=== PATIENT | female | born 1950 | race Caucasian/White ===

== ENCOUNTER 2020-09-20 19:43 | Inpatient (IN) | payer MEDICARE ==
[2020-09-20 20:43] LABS: Hemoglobin 10.4 g/dL (12.0-16.0); Mean Corpuscular HGB CONC 28.7 g/dL (32.0-36.0); Mean Corpuscular Hemoglobin 26.2 pg (27.0-31.0); Mean Corpuscular Volume 91.3 fL (78.0-98.0); Mean Platelet Volume 9.9 fL (7.4-10.4); Platelet Count 276 thou/uL (130-400); RBC Distribution Width 17.5 % (11.5-14.5); Red Blood Cell (RBC) Count 3.98 mill/uL (4.20-5.40); White Blood Cell (WBC) Count 8.7 thou/uL (4.8-10.8)
[2020-09-20 20:44] LABS: #Eosinphils 0.1 thou/uL (0.0-0.7); #Monocytes 0.9 thou/uL (0.11-0.59); #Neutrophils 6.7 thou/uL (1.40-6.50); %Basophils 0.4 % (0.0-1.0); %Lymphocytes 11.9 % (21.0-51.0); %Monocytes 9.8 % (0.0-10.0)
[2020-09-20 21:07] LABS: ALT (SGPT) 11 U/L (8-55); AST (SGOT) 12 U/L (5-34); Albumin 3.6 g/dL (3.4-4.8); Alkaline Phosphatase 86 U/L (40-110); Anion Gap 17 mmol/L (10-20); BUN (Urea Nitrogen) 48 mg/dL (9.8-20.1); Bilirubin, Total 0.3 mg/dL (0.2-1.2); CK (CPK) 74 U/L (29-168); Calc. Creatinine Clearance 0 mL/min (70-130); Calcium 8.5 mg/dL (7.8-10.44); Carbon Dioxide 25 mmol/L (23-31); Chloride 108 mmol/L (98-107); Globulin 2.9 g/dL (2.4-3.5); Glucose 130 mg/dL (83-110); Lipase 10 U/L (8-78); Potassium 5.7 mmol/L (3.5-5.1); Protein, Total 6.5 g/dL (5.8-8.1); Sodium 144 mmol/L (136-145)
[2020-09-20 21:10] LABS: Anisocytosis SLIGHT = 6-15 cells (100X) (0-5/hpf); Hypochromia MODERATE=16-30 cells (100X) (0-5/hpf); MDiff Complete? YES; Ovalocytes SLIGHT = 2-5 cells (100X) (0-1/hpf); Platelet Morphology Comment Appears Adequate; Polychromasia SLIGHT = 2-3 cells (100X) (0-2/hpf); Reflex for Review?? NO; Stomatocytes SLIGHT = 2-5 cells (100X) (0-1/hpf); Target Cells SLIGHT = 2-5 cells (100X) (0-1/hpf)
[2020-09-20] MEDS ORDERED: Diltiazem 125 MG/25 ML ONE (21:29)
[2020-09-20] MEDS ORDERED: Magnesium 2 GM/50 ML BAG (IN WATER) ONE (21:29)
[2020-09-20 21:49] LABS: Actual Bicarbonate (HCO3a) 25.3 mEq/L (22-28); Analyzer IN Cardio ER; Base Excess (BEa) -2.8 mEq/L (-2.0 to +3.0); Calcium, Ionized (arterial) 1.22 mmol/L (1.12-1.30); Carboxyhemoglobin (COHb) 0.4 gm% (0.0-3.0); Potassium - ABG Lab 5.59 mmol/L (3.70-5.30)
[2020-09-20 22:04] LABS: SARS-CoV-2 NAA Rapid Test Not Detected (NotDetected)
[2020-09-20 22:37] LABS: pH, Arterial 7.24 (7.35-7.45)
[2020-09-20 22:38] LABS: CO2 Tension 61.2 mmHg (35.0-45.0); Puncture Site RRA
[2020-09-20] MEDS ORDERED: Rocuronium Bromide 10 MG/ML (10ML VIAL) ONE (23:16)
[2020-09-20] MEDS ORDERED: Fentanyl 100 MCG/2 ML VIAL ONE ×2 (23:45→23:59)
[2020-09-20] MEDS ORDERED: fentaNYL Citrate/PF 2,000 MCG in Sodium Chloride 0.9% 60 ML IV SCH (23:45)
--- NOTE | 2020-09-20 23:53 | RAD ---
Chest one view HISTORY: Dyspnea. Intubated. COMPARISON: Earlier exam on the same date. FINDINGS: Cardiac silhouette is magnified, enlarged, and partially secured by dense bilateral airspac e disease scattered throughout each lung. Density has progressed since the prior study. Left hemidiaphragm now obscured. Pulmonary vasculature remains engorged. Tip of an endotracheal catheter projects over the thoracic inlet. Tip of a right subclavian central v enous catheter overlies the SVC. No evidence of pneumothorax. Calcification at the aorta. IMPRESSION : Endotracheal catheter and right subclavian central venous catheter are in good radiographic position. Worsening pulmonary edema and bilateral infiltrates and fluid.
[2020-09-21 00:24] LABS: Actual Bicarbonate (HCO3a) 25.5 mEq/L (22-28); Analyzer IN Cardio ER; Base Excess (BEa) -1.1 mEq/L (-2.0 to +3.0); CO2 Tension 51.4 mmHg (35.0-45.0); Carboxyhemoglobin (COHb) 0.6 gm% (0.0-3.0); Hemoglobin (Hb) 10.7 g/dL (12.0-16.0); O2 Tension (PaO2), arterial 61.5 mmHg (> 70.0); Potassium - ABG Lab 5.38 mmol/L (3.70-5.30); pH, Arterial 7.31 (7.35-7.45)
[2020-09-21 00:26] LABS: Puncture Site LRA
[2020-09-21] MEDS ORDERED: Acetaminophen 325 MG TAB PO PRN (02:14)
[2020-09-21] MEDS ORDERED: Ventilator Sedation Protocol 1 EACH FS SCH (03:00)
[2020-09-21 03:06] LABS: Anion Gap 23 mmol/L (10-20); BUN (Urea Nitrogen) 50 mg/dL (9.8-20.1); Calc. Creatinine Clearance 0 mL/min (70-130); Calcium 9.6 mg/dL (7.8-10.44); Carbon Dioxide 21 mmol/L (23-31); Chloride 105 mmol/L (98-107); Glucose 103 mg/dL (83-110); Potassium 6.3 mmol/L (3.5-5.1); Sodium 143 mmol/L (136-145)
[2020-09-21] MEDS ORDERED: Propofol BOLUS 1,000 MG/100 ML VIAL IV PRN (03:30)
[2020-09-21] MEDS ORDERED: DISCONTINUE PREVIOUS NARCOTIC PAIN MEDICATIONS AND BENZODIAZEPINES FS SCH (03:30)
[2020-09-21] MEDS ORDERED: Fentanyl BOLUS 250 ML IVPB PRN (03:30)
[2020-09-21] MEDS ORDERED: Propofol 1,000 MG/100 ML VIAL IV PRN (03:30)
[2020-09-21] MEDS ORDERED: Morphine 2 MG/ML VIAL SLOW IVP PRN (03:30)
[2020-09-21] MEDS: Azithromycin 500 MG in Sodium Chloride 0.9% 250 ML 250 ML IVPB SCH (03:59)
--- NOTE | 2020-09-21 04:01 | PDOC.HHP ---
Hospitalist HPI Dyspnea History of Present Illness: This is a 70-year-old female patient with a history of CHF, COPD, morbid obesity atrial fibrillation, diabetes mellitus, hyperlipidemia who presents with worsening dyspnea. She is a senior living resident. At baseline patient requires 2L supplemental oxygen and is ANO x4. Patient was found to be confused ANO x2 with hypoxia EMS was activated. She was sent to [place] where initial management involved Lasix 40 mg cefepime and vancomycin and she required nonrebreather oxygen by facemask at 10 L. She was subsequently transferred here for higher level care. At presentation here her blood pressure was 164/122, pulse 113, respirate 16 and saturation 98% on nonrebreather. Temperature is 97.7. Patient was increasingly agitatedwas eventually intubated for airway protection. Labs showed WBC 8.7, hemoglobin 10.4, platelets 276, chemistry showed sodium 144, potassium 5.7, creatinine 2.27 with no baseline on file. Glucose is 130. Troponin was 0.021 and BNP elevated at 277. ABG showed a pH of 7.24, PE CO2 of 61.2 and PO2 of 42. Chest x-ray noted worsening pulmonary edema with bilateral infiltrates and fluid. Her Covid test was negative as well as influenza. H ospitalist team was consulted to admit patient. Allergies/Adverse Reactions: Allergy/AdvReac Type Severity Reaction Status Date / Time codeine Allergy Verified 09/20/20 23:46 morphine Allergy Verified 09/20/20 23:46 Past History: PMHx: PSHx: FHx: Social: Hospitalist HPI ROS ROS unobtainable: due to endotracheal tube Hospitalist Exam Vitals: Weight Weight 383 lb 6.142 oz General - other findings: Intubated, spontaneous movement of all limbs. Eye - other findings: Pupils reactive bilaterally ENT: normocephalic atraumatic Neck: supple, symmetric Heart: RRR, no murmur, no rubs Respiratory: tachypneic, wheezes Respiratory - other findings: Coarse breath sounds bilaterally. Gastrointestinal: soft Gastrointestinal - other findings: Obese, no rigidity organomegaly. Bowel sounds present Extremities: no cyanosis, no clubbing, 1+ LE edema Neurological - other findings: Spontaneous movement of all limbs. Psychiatric - other findings: Unable to assess Hospitalist Results Result Diagrams: 09/20/20 20:30 09/21/20 03:48 Lab results: Laboratory Last Values WBC 8.7 thou/uL (4.8-10.8) 09/20/20 20:30 RBC 3.98 mill/uL (4.20-5.40) L 09/20/20 20:30 Hgb 10.4 g/dL (12.0-16.0) L 09/20/20 20:30 Hct 36.4 % (36.0-47.0) 09/20/20 20:30 MCV 91.3 fL (78.0-98.0) 09/20/20 20: MCH 26.2 pg (27.0-31.0) L 09/20/20 20: MCHC 28.7 g/dL (32.0-36.0) L 09/20/20 20: RDW 17.5 % (11.5-14.5) H 09/20/20 20:30 Plt Count 276 thou/uL (130-400) 09/20/20 20: MPV 9.9 fL (7.4-10.4) 09/20/20 20: Neutrophils % 77.0 % (42.0-75.0) H 09/20/20 20:30 Neutrophils % (Manual) Not Reportable 09/20/20 20: Lymphocytes % 11.9 % (21.0-51.0) L 09/20/20 20:30 Monocytes % 9.8 % (0.0-10.0) 09/20/20 20: Eosinophils % 1.0 % (0.0-10.0) 09/20/20: Basophils % 0.4 % (0.0-1.0) 09/20/20 20:30 Neutrophils # 6.7 thou/uL (1.40-6.50) H 09/20/20 20:30 Lymphocytes # 1.0 thou/uL (1.20-3.40) L 09/20/20 20: Monocytes # 0.9 thou/uL (0.11-0.59) H 09/20/20 20:30 Eosinophils # 0.1 thou/uL (0.0-0.7) 09/20/20 20: Basophils # 0.0 thou/uL (0.0-0.2) 09/20/20 20:30 Hypochromia MODERATE=16-30 cells (100X) (0-5/hpf) H 09/20/20 20:30 Plt Morphology Comment Appears Adequate 09/20/20 20:30 Polychromasia SLIGHT = 2-3 cells (100X) (0-2/hpf) 09/20/20 20:30 Anisocytosis SLIGHT = 6-15 cells (100X) (0-5/hpf) 09/20/20 20:30 Target Cells SLIGHT = 2-5 cells (100X) (0-1/hpf) 09/20/20 20:30 Ovalocytes SLIGHT = 2-5 cells (100X) (0-1/hpf) 09/20/20 20:30 Stomatocytes SLIGHT = 2-5 cells (100X) (0-1/hpf) 09/20/20 20:30 Specimen Type a 09/21/20 00:15 Puncture Site LRA 09/21/20 00:15 Bicarbonate Actual 25.5 mEq/L (22-28) 09/21/20 00:15 ABG pH 7.31 (7.35-7.45) L 09/21/20 00:15 ABG pCO2 51.4 mmHg (35.0-45.0) H 09/21/20 00:15 ABG pO2 61.5 mmHg (> 70.0) 09/21/20 00:15 ABG O2 Sat (Measured) 92.5 % (94.0-98.0) L 09/21/20 00:15 ABG O2 Content 13.7 vol% (18.0-21.0) L 09/21/20 00:15 ABG Base Excess -1.1 mEq/L (-2.0 to +3.0) 09/21/20 00:15 ABG Hematocrit 31.0 % (36.0-47.0) L 09/21/20 00:15 ABG Hemoglobin 10.7 g/dL (12.0-16.0) L 09/21/20 00:15 ABG Oxyhemoglobin 91.1 % (94.0-98.0) L 09/21/20 00:15 ABG Carboxyhemoglobin 0.6 gm% (0.0-3.0) 09/21/20 00:15 ABG Methemoglobin 0.90 gm% (0.04-1.52) 09/21/20 00:15 ABG Deoxyhemoglobin 7.4 % (0.0-2.9) H 09/21/20 00:15 Sree Test POSITIVE 09/21/20 00:15 A-a O2 Gradient 230.750 mmHg (0-20) H 09/21/20 00:15 Sodium 143 mmol/L (135-148) 09/21/20 00:15 Potassium 5.38 mmol/L (3.70-5.30) H 09/21/20 00:15 Chloride 109 mmol/L (98-106) H 09/21/20 00:15 Ionized Calcium 1.20 mmol/L (1.12-1.30) 09/21/20 00:15 Mode of Support SIMV 09/21/20 00:15 Mechanical Rate 18 min 09/21/20 00:15 Inspired O2 50 % 09/21/20 00:15 Tidal Volume 450 ml 09/21/20 00:15 Pressure Support 10 cmH2O 09/21/20 00:15 PEEP or CPAP 5.0 cmH2O 09/21/20 00:15 Sodium 143 mmol/L (136-145) 09/21/20 02:33 Potassium 6.3 mmol/L (3.5-5.1) H 09/21/20 02:33 Chloride 105 mmol/L (98-107) 09/21/20 02:33 Carbon Dioxide 21 mmol/L (23-31) L 09/21/20 02:33 Anion Gap 23 mmol/L (10-20) H 09/21/20 02:33 BUN 50 mg/dL (9.8-20.1) H 09/21/20 02:33 Creatinine 2.83 mg/dL (0.6-1.1) H 09/21/20 02:33 Estimated GFR (MDRD) 16 09/21/20 02:33 Glucose 103 mg/dL (83-110) 09/21/20 02:33 Lactic Acid 1.7 mmol/L (0.5-2.2) 09/20/20 20:30 Calcium 9.6 mg/dL (7.8-10.44) 09/21/20 02:33 Total Bilirubin 0.3 mg/dL (0.2-1.2) 09/20/20 20:30 AST 12 U/L (5-34) 09/20/20 20:30 ALT 11 U/L (8-55) 09/20/20 20:30 Alkaline Phosphatase 86 U/L (40-110) 09/20/20 20:30 Creatine Kinase 74 U/L (29-168) 09/20/20 20:30 Troponin I 0.021 ng/mL (< 0.028) 09/20/20 20:30 B-Natriuretic Peptide 277.8 pg/mL (0-100) H 09/20/20 20:31 Serum Total Protein 6.5 g/dL (5.8-8.1) 09/20/20 20:30 Albumin 3.6 g/dL (3.4-4.8) 09/20/20 20: Globulin 2.9 g/dL (2.4-3.5) 09/20/20 20: Albumin/Globulin Ratio 1.2 g/dL (1.2-2.2) 09/20/20 20:30 Lipase 10 U/L (8-78) 09/20/20 20:30 Influenza A RNA INAAT Not Detected (NotDetected) 09/20/20 20:57 Influenza B RNA INAAT Not Detected (NotDetected) 09/20/20 20:57 SARS-CoV-2 Rap RNA(RT-PCR) Not Detected (NotDetected) 09/20/20 20:57 Hospitalist H&P A/P Plan: This is 70-year-old female patient with history of COPD, CHF presenting with worsening dyspnea and altered mental status ultimately requiring intubation. Acute hypoxic respiratory failure MultifactorialCHF exacerbation, COPD exacerbation, possible pneumonia. Currently intubated Appreciate pulmonology input. Acute encephalopathy Likely secondary to hypoxia and hypercarbia Continue management on the ventilator Continue monitor COPD exacerbation Duo nebs, steroids, antibioticsazithromycin with cefepime Continue ventilator support. CHF exacerbation Received Lasix at outside hospital We will continue hydration Echocardiogram in a.m. Consider cardiology consult. Possible pneumonia Continue antibiotics as above-azithromycin/cefepime DEDE Creatinine above 2 no baseline on file Possible cardiorenal We will diurese Nephrology consult. Hyperkalemia Potassium above 5 Appreciate nephrology input. DVT prophylaxisHeparin CODE STATUSto be discussed
[2020-09-21] MEDS ORDERED: Insulin Regular 300 UNITS/3 ML VIAL IVP SCH (04:15)
[2020-09-21] MEDS ORDERED: Calcium Gluc 4.6 MEQ/10 ML (100 MG/ML) SLOW IVP SCH (04:15)
[2020-09-21] MEDS: Dextrose 50% Abboject 50 ML SYRINGE SLOW IVP SCH ×2 (04:28→06:46)
[2020-09-21 04:30] LABS: Bacteria/HPF None Seen HPF (None Seen); Bilirubin Negative (Negative); Blood, Urine Negative (Negative); Clarity Clear (Clear); Glucose, Urine (Dipstick) Normal (Negative); Ketone, Urine Negative (Negative); Leukocyte Negative Leu/uL (Negative); Nitrite Negative (Negative); Protein, Urine (Dipstick) 30 mg/dL (Neg-Trace); RBC/HPF 0-3 HPF (0-3); Specific Gravity, Urine 1.015 (1.002-1.036); Squamous Epithelial 0-3 HPF (0-3); Urobilinogen Normal mg/dL (Less than 2); WBC/HPF 0-3 HPF (0-3)
[2020-09-21 04:35] LABS: Anion Gap 20 mmol/L (10-20); BUN (Urea Nitrogen) 52 mg/dL (9.8-20.1); Calc. Creatinine Clearance 51 mL/min (70-130); Calcium 8.8 mg/dL (7.8-10.44); Carbon Dioxide 23 mmol/L (23-31); Chloride 108 mmol/L (98-107); Glucose 94 mg/dL (83-110); Potassium 6.1 mmol/L (3.5-5.1); Sodium 145 mmol/L (136-145)
[2020-09-21] MEDS ORDERED: Dextrose 50% Abboject 50 ML SYRINGE SLOW IVP SCH (04:45)
[2020-09-21] MEDS ORDERED: cefTRIAXone\\ROCEPHIN 1 GM in Sodium Chloride 0.9% 100 ML IVPB SCH (06:00)
[2020-09-21] MEDS: Furosemide 40 MG/4 ML VIAL SLOW IVP SCH ×2 (06:16→14:47)
[2020-09-21 06:28] LABS: #Eosinphils 0.1 thou/uL (0.0-0.7); #Lymphocytes 1.2 thou/uL (1.20-3.40); #Monocytes 0.9 thou/uL (0.11-0.59); #Neutrophils 5.8 thou/uL (1.40-6.50); %Basophils 0.2 % (0.0-1.0); %Eosinophils 1.7 % (0.0-10.0); %Lymphocytes 14.6 % (21.0-51.0); %Monocytes 11.4 % (0.0-10.0); %Neutrophils 72.1 % (42.0-75.0); Anisocytosis SLIGHT = 6-15 cells (100X) (0-5/hpf); Hemoglobin 10.1 g/dL (12.0-16.0); MDiff Complete? YES; Mean Corpuscular HGB CONC 28.8 g/dL (32.0-36.0); Mean Corpuscular Hemoglobin 26.4 pg (27.0-31.0); Mean Corpuscular Volume 91.7 fL (78.0-98.0); Mean Platelet Volume 10.6 fL (7.4-10.4); Platelet Count 234 thou/uL (130-400); RBC Distribution Width 17.1 % (11.5-14.5); Red Blood Cell (RBC) Count 3.84 mill/uL (4.20-5.40); White Blood Cell (WBC) Count 8.1 thou/uL (4.8-10.8)
[2020-09-21] MEDS ORDERED: Fentanyl CADD 100 ML ONE ×2 (07:47→21:31)
[2020-09-21 08:41] LABS: Actual Bicarbonate (HCO3a) 24.7 mEq/L (22-28); Base Excess (BEa) 0.5 mEq/L (-2.0 to +3.0); Calcium, Ionized (arterial) 1.18 mmol/L (1.12-1.30); Carboxyhemoglobin (COHb) 0.7 gm% (0.0-3.0); Hemoglobin (Hb) 10.2 g/dL (12.0-16.0); O2 Tension (PaO2), arterial 70.2 mmHg (> 70.0); Potassium - ABG Lab 4.96 mmol/L (3.70-5.30); pH, Arterial 7.43 (7.35-7.45)
[2020-09-21 08:45] LABS: Puncture Site LRA
[2020-09-21] MEDS ORDERED: Heparin 5,000 UNITS/ML VIAL SC SCH (09:00)
[2020-09-21] MEDS: Cefepime 2 GM in Sodium Chloride 0.9% 100 ML IVPB SCH ×2 (09:10→21:00)
[2020-09-21] MEDS: methylPREDNISolone Sod Succ 40 MG VIAL IVP SCH (09:12)
[2020-09-21 10:28] LABS: Potassium 3.9 mmol/L (3.5-5.1)
[2020-09-21] MEDS ORDERED: Dextrose 50% Abboject 50 ML SYRINGE IVP PRN (12:00)
[2020-09-21] MEDS ORDERED: Dextrose 5% in Water 1,000 ML IV PRN (12:00)
--- NOTE | 2020-09-21 13:30 | CON ---
DATE OF CONSULTATION: HISTORY OF PRESENT ILLNESS: Latrice Rodriguez is a 70-year-old female. History is obtained from the xt-hfwmoorx-dr-law, who does provide majority of her supportive care. She appears to be very concerned. Apparently, Ms. Rodriguez had really been out of full-time care environment for quite some time. She can transfer to a wheelchair, but she does not ambulate. She has been hospitalized once in [place] with heart failure recently and then hospitalized all the way down in [place] recently when she was flown from [place] to [place] for congestive heart failure because the hospital was apparently a sister hospital according to the sk-qdtzzcjr-mg-law. She has a history also of uldhnjjpy-fg-fjvipwh atrial fibrillation. She apparently presented with respiratory failure and was intubated. She was noted to be hypertensive on admission, although lungs are quite large. It is unclear to me whether or not these are accurate blood pressures. PAST MEDICAL HISTORY: Otherwise remarkable for obesity, deconditioning, chronic oxygen use, diabetes, and lipid disorder. FAMILY HISTORY: Negative for lung disease in early age. SOCIAL HISTORY: As mentioned, her kl-dcqdbnmo-bp-law provides most of her care. She does have out of town children, I believe. She is nonsmoker, nondrinker. REVIEW OF SYSTEMS: Not obtainable. PHYSICAL EXAMINATION: VITAL SIGNS: Blood pressure 121/73, heart rate is 105. She is in atrial fibrillation. FiO2 is at 55, respiratory rates in the teens. She is 5.2, 383 according to the computer. HEENT: Her pupils react. Sclerae are anicteric. GENERAL: She will awaken and make eye contact. She spontaneously moves her extremities. LUNGS: Clear. HEART: Regular rhythm. ABDOMEN: Soft. EXTREMITIES: Fairly massive extremities with stasis changes. LABORATORY DATA: White count 8.1, hemoglobin 10.1, and platelets 234. Potassium was 6.1 this morning. Repeat was 3.9. IMPRESSION: Respiratory failure secondary to congestive heart failure associated with hypertension and atrial fibrillation. Cardiology should be consulted. Echocardiogram needs to be done. She is not weanable at this time. I have encouraged the uz-edzowika-zn-law to discuss code status with family. We will follow. Job ID: [id number]
--- NOTE | 2020-09-21 14:10 | PDOC.HOSPP ---
- Subjective Encounter Date: 09/21/20 Encounter Time: 14:08 Subjective: Ms. Rodriguez was seen today in follow-up of respiratory failure due to COVID pneumonia. She is intubated, and sedated. - Objective Vital Signs & Weight: Vital Signs (12 hours) Temp Pulse Resp BP Pulse Ox 09/21/20 11:47 117 H 103/79 09/21/20 11:00 99.4 F 09/21/20 08:25 114 H 141/84 H 98 09/21/20 08:00 100.2 F H 09/21/20 06:00 18 09/21/20 04:00 18 98 09/21/20 03:10 98.7 F 09/21/20 02:50 68 Weight Weight 383 lb Most Recent Monitor Data Heart Rate from ECG 113 NIBP 104/74 NIBP BP-Mean 84 Respiration from ECG 18 SpO2 95 I&O: 09/20/20 09/21/20 09/22/20 06:59 06:59 06:59 Intake Total 625.8 113 Output Total 100 245 Balance 525.8 -132 Result Diagrams: 09/21/20 03:48 09/21/20 09:53 Hospitalist ROS - Medication Medications: Active Medications Generic Name Dose Route Start Last Admin Trade Name Freq PRN Reason Stop Dose Admin Dextrose/Water 25 gm 09/21/20 12:00 09/21/20 11:58 Dextrose 50% Abboject 50 Ml Syringe IVP 25 gm PRN PRN Administration HYPOGLYCEMIA PROTOCOL Furosemide 40 mg 09/21/20 06:00 09/21/20 06:16 Furosemide 40 Mg/4 Ml Vial SLOW IVP 40 mg 0600,1400 TAHMINA Administration Azithromycin 500 mg/ Sodium 250 mls @ 250 mls/hr 09/21/20 04:00 09/21/20 03:59 Chloride IVPB 250 mls 0400 TAHMINA Administration Cefepime HCl 2 gm/ Sodium 100 mls @ 200 mls/hr 09/21/20 09:00 09/21/20 09:10 Chloride IVPB 100 mls Q12HR TAHMINA Administration Methylprednisolone Sodium Succinate 40 mg 09/21/20 09:00 09/21/20 09:12 Methylprednisolone Sod Succ 40 Mg Vial IVP 40 mg DAILY TAHMINA Administration Hospitalist Exam Vitals: Vital Signs (12 hours) Temp Pulse Resp BP Pulse Ox 09/21/20 11:47 117 H 103/79 09/21/20 11:00 99.4 F 09/21/20 08:25 114 H 141/84 H 98 09/21/20 08:00 100.2 F H 09/21/20 06:00 18 09/21/20 04:00 18 98 09/21/20 03:10 98.7 F 09/21/20 02:50 68 Weight Weight 383 lb Most Recent Monitor Data Heart Rate from ECG 113 NIBP 104/74 NIBP BP-Mean 84 Respiration from ECG 18 SpO2 95 General Appearance: NAD, awake alert Eye: PERRL, anicteric sclera Heart: RRR, no murmur, no gallops, no rubs, normal peripheral pulses Respiratory: rales (at both bases, and decreased breath sounds.) Gastrointestinal: soft, non-tender, non-distended, normal bowel sounds, no palpable masses, no hepatomegaly Extremities: no cyanosis, no edema Hosp A/P (1) Acute respiratory failure with hypoxemia Code(s): J96.01 - ACUTE RESPIRATORY FAILURE WITH HYPOXIA Status: Acute (2) Acute kidney injury Code(s): N17.9 - ACUTE KIDNEY FAILURE, UNSPECIFIED Status: Acute (3) Hyperkalemia Code(s): E87.5 - HYPERKALEMIA Status: Acute (4) Atrial fibrillation Code(s): I48.91 - UNSPECIFIED ATRIAL FIBRILLATION Status: Acute (5) Morbid obesity with BMI of 70 and over, adult Code(s): E66.01 - MORBID (SEVERE) OBESITY DUE TO EXCESS CALORIES; Z68.45 - BODY MASS INDEX [BMI] 70 OR GREATER, ADULT Status: Acute (6) Acute on chronic clinical systolic heart failure Code(s): I50.23 - ACUTE ON CHRONIC SYSTOLIC (CONGESTIVE) HEART FAILURE Status: Acute (7) COPD (chronic obstructive pulmonary disease) Status: Chronic - Plan * Acute on chronic systolic heart failure exacerbation- continue IV Lasix * Echo results noted. She has mild systolic heart failure- but likely has supe rimposed obesity hypoventilation, and COPD exacerbation as well * Hyperkalemia- She has received Kayexalate, and glucose-insulin- the repeat potassium was 3.9. Nephrology has been consulted * AFIB- her heart rate has been variable, and she has marginal blood pressures- will try a low dose cardizem, but if her blood pressure can not tolerate will consult Cardiology * Acute Kidney injury- not sure if this is her baseline, or if this is acute kidney injury- will defer to Nephrology * COPD/possible pneumonia- continue Azithromycin, and Cefepime and Solumedrol * Respiratory failure on the ventilator- continue as per PCCM * Continue Heparin for DVT prophylaxis, and will add Protonix for GI prophylaxis
[2020-09-21] MEDS ORDERED: Pantoprazole 40 MG VIAL IVP SCH (14:45)
--- NOTE | 2020-09-21 16:00 | CON ---
DATE OF CONSULTATION: HISTORY OF PRESENT ILLNESS: The patient is a 70-year-old woman with an apparent history of atrial fibrillation and congestive heart failure. The patient was apparently recently in [place] with congestive heart failure. She was then also evaluated in [place]. The patient resides in [place]. She presented to the emergency room markedly dyspneic. She was emergently intubated. PAST MEDICAL HISTORY: 1. Congestive heart failure. 2. Dyslipidemia. PAST SURGICAL HISTORY: Unknown SOCIAL HISTORY: She lives in [facility]. REVIEW OF SYSTEMS: Not obtainable. PHYSICAL EXAMINATION: GENERAL: Morbidly obese woman, intubated. VITAL SIGNS: Blood pressure of 104/74. Heart rate is 113 and irregular. NECK: No jugular venous distention. LUNGS: Crackles throughout both lung zapata. HEART: Irregular rate and rhythm. Normal S1 and S2 with a 2/6 systolic murmur. ABDOMEN: Markedly distended. EXTREMITIES: Moderate edema. LABORATORY RESULTS: Her sodium was 145, potassium 6.1, chloride 108, bicarbonate 23, BUN 52, and creatinine 2.78. Her white blood cell count is 8.1, hemoglobin 10.1, hematocrit 35.2, and her platelets are 234. BNP was 277. Troponin 0.021. Her EKG revealed to have atrial fibrillation with low voltage QRS, poor R-wave progression. Echocardiogram was a technically very limited exam. There appeared to be a mild decrease in left ventricular systolic function with moderate aortic stenosis. IMPRESSION: 1. Respiratory failure. 2. Congestive heart failure. 3. Cardiomyopathy. 4. Permanent atrial fibrillation. 5. Aortic stenosis. 6. Diabetes mellitus. 7. Renal insufficiency. 8. Morbid obesity. This unfortunate woman with morbid obesity, presents with congestive heart failure.Her echocardiogram was technically limited. There appeared to be a mild decrease in left ventricular systolic function with aortic stenosis. The patient's chest x- ray is suggestive of edema. She appears to have developed renal failure. The patient's prognosis is very guarded. She is not an appropriate patient for interventional procedures. We will follow this patient with you through her hospitalization. Her prognosis remains very poor. TIME SPENT: Critical care note time 40 minutes. Job ID: [id number] MTDD
[2020-09-21] MEDS: Metoprolol Tartrate 5 MG/5 ML VIAL IVP PRN (16:02)
--- NOTE | 2020-09-21 20:33 | CON ---
DATE OF CONSULTATION: 09/21/2020 REASON FOR CONSULTATION: Acute kidney injury and hyperkalemia. REASON FOR ADMISSION: Shortness of breath. HISTORY OF PRESENT ILLNESS: This is a 70-year-old female, with history of CHF, COPD, morbid obesity, who came to the hospital with shortness of breath and is intubated. She was found to have CHF exacerbation and also hyperkalemia. Nephrology was consulted. The patient does have history of CHF and was recently hospitalized and is being treated. PAST MEDICAL HISTORY: Positive for CHF, hypertension, hyperlipidemia, AFib, COPD, diabetes, hyperlipidemia. PAST SURGICAL HISTORY: Not known. HOME MEDICATIONS: Reviewed. ALLERGIES: TO CODEINE AND MORPHINE. SOCIAL HISTORY: No smoking, alcohol, or illicit drug use. FAMILY HISTORY: No history of kidney disease. REVIEW OF SYSTEMS: Could not be obtained as she is intubated. PHYSICAL EXAMINATION: GENERAL: This is a morbidly obese female, who is intubated. VITAL SIGNS: Temperature 99.6, pulse 110, respiratory rate 18, blood pressure 104/62. HEENT: Intubated. CV: S1 and S2 heard. Tachycardia. RESPIRATORY: Clear. GI: Abdomen is soft. MUSCULOSKELETAL: 1 to 2+ edema. DERMATOLOGIC: Chronic skin changes. NEUROLOGICAL: Intubated. LABORATORY DATA: Hemoglobin is 10.1; potassium 6.1, down to 3.9; BUN is 52 and creatinine is 2.7. ASSESSMENT AND PLAN: 1. Acute kidney injury on chronic kidney disease, stage 3 or 4, most likely from cardiorenal syndrome. Agree with current management including diuretics with close monitoring. 2. Hyperkalemia, better with medical management. We will monitor. 3. Cardiorenal syndrome. 4. Elevated BNP. 5. Edema. 6. Morbid obesity. 7. Anemia. 8. Acute hypoxic respiratory failure. Continue diuretics and monitor renal function and electrolytes. Monitor potassium. We will recheck labs. We will reduce heparin to subcu b.i.d. and recheck labs in the morning. We will follow. Job ID: [id number]
[2020-09-21] MEDS: Heparin 5,000 UNITS/ML VIAL SC SCH (21:04)
[2020-09-21] MEDS: Lorazepam 2 MG/ML VIAL SLOW IVP PRN (21:22)
[2020-09-22] MEDS: Metoprolol Tartrate 5 MG/5 ML VIAL ONE (01:40)
[2020-09-22] MEDS ORDERED: Metoprolol Tartrate 5 MG/5 ML VIAL IVP PRN (01:45)
[2020-09-22] MEDS ORDERED: Metoprolol Tartrate 5 MG/5 ML VIAL IVP SCH (01:45)
[2020-09-22] MEDS: Azithromycin 500 MG in Sodium Chloride 0.9% 250 ML 250 ML IVPB SCH (04:09)
[2020-09-22 05:00] LABS: Anion Gap 17 mmol/L (10-20); BUN (Urea Nitrogen) 56 mg/dL (9.8-20.1); Calc. Creatinine Clearance 51 mL/min (70-130); Calcium 8.8 mg/dL (7.8-10.44); Carbon Dioxide 25 mmol/L (23-31); Chloride 107 mmol/L (98-107); Glucose 94 mg/dL (83-110); Sodium 144 mmol/L (136-145)
[2020-09-22 05:04] LABS: #Lymphocytes 1.3 thou/uL (1.20-3.40); #Neutrophils 5.9 thou/uL (1.40-6.50); %Basophils 0.5 % (0.0-1.0); %Eosinophils 0.4 % (0.0-10.0); %Monocytes 12.1 % (0.0-10.0); Hemoglobin 8.9 g/dL (12.0-16.0); Mean Corpuscular HGB CONC 30.8 g/dL (32.0-36.0); Mean Corpuscular Hemoglobin 26.7 pg (27.0-31.0); Mean Corpuscular Volume 86.8 fL (78.0-98.0); Mean Platelet Volume 10.4 fL (7.4-10.4); Platelet Count 242 thou/uL (130-400); Red Blood Cell (RBC) Count 3.32 mill/uL (4.20-5.40); White Blood Cell (WBC) Count 8.3 thou/uL (4.8-10.8)
[2020-09-22] MEDS ORDERED: Amiodarone 150 MG, Admixture Fee 1 EACH in Dextrose 5% in Water 100 ML IVPB SCH (05:30)
[2020-09-22] MEDS: Furosemide 40 MG/4 ML VIAL SLOW IVP SCH ×2 (05:58→15:10)
[2020-09-22] MEDS: Amiodarone 450 MG, Admixture Fee 1 EACH in Dextrose 5% in Water 250 ML IVPB SCH ×2 (06:33→15:08)
[2020-09-22 06:42] VITALS: BMI 70.2
[2020-09-22] MEDS: Cefepime 2 GM in Sodium Chloride 0.9% 100 ML IVPB SCH ×2 (08:33→20:33)
[2020-09-22] MEDS: methylPREDNISolone Sod Succ 40 MG VIAL IVP SCH (08:35)
[2020-09-22] MEDS: Heparin 5,000 UNITS/ML VIAL SC SCH (08:35)
[2020-09-22] MEDS: Pantoprazole 40 MG VIAL IVP SCH (08:36)
--- NOTE | 2020-09-22 09:56 | PRG ---
DATE OF SERVICE: 09/22/2020 SUBJECTIVE: Latrice Scott AFib still not controlled. OBJECTIVE: VITAL SIGNS: Heart rates are in the 120 and 130s. She is afebrile. Blood pressure 100/73, respiratory rates in the 20s. LUNGS: Remarkable for coarse equal breath sounds. HEART: Regular rhythm. ABDOMEN: Soft. EXTREMITIES: With stasis changes. LABORATORY DATA: White count 8.3, hemoglobin 8.9, platelets 242. Electrolytes are normal. BUN 56 and creatinine 2.79, 2.78 yesterday and 2.83 the day before. IMPRESSION: 1. Atrial fibrillation induced pulmonary edema. 2. Probable diastolic dysfunction based on her history. Her echo showed her ejection fraction to be 40% to 50% surprisingly and moderate aortic stenosis. 3. Mhaxjroo-nd-bujpuq tricuspid regurgitation, most likely secondary to sleep apnea. She does not wear CPAP. 4. Acute on chronic kidney disease. 5. Do not resuscitate status. PLAN: Continue supportive care until her atrial fibrillation rate is controlled. Job ID: [id number]
--- NOTE | 2020-09-22 10:05 | PDOC.HOSPP ---
- Subjective Encounter Date: 09/22/20 Encounter Time: 10:04 Subjective: Ms. Rodriguez was seen today in follow-up of respiratory failure due to CHF exacerbation and aortic stenosis. She is intubated. She does not follow commands. - Objective Vital Signs & Weight: Vital Signs (12 hours) Temp Pulse BP Pulse Ox 09/22/20 08:00 99.1 F 09/22/20 07:15 119 H 96/64 93 L 09/22/20 03:44 126 H 09/22/20 02:50 93 L 09/22/20 02:15 94 L 09/21/20 23:30 122 H Weight Admit Weight 383 lb Weight 381 lb 6.395 oz Most Recent Monitor Data Heart Rate from ECG 127 NIBP 99/54 NIBP BP-Mean 69 Respiration from ECG 21 SpO2 95 I&O: 09/21/20 09/22/20 09/23/20 06:59 06:59 06:59 Intake Total 625.8 649.6 Output Total 100 670 Balance 525.8 -20.4 Result Diagrams: 09/22/20 04:15 09/22/20 04:15 Additional Labs: Accuchecks 09/22/20 09/21/20 09/21/20 00:10 17:37 14:59 POC Glucose 111 H 112 H 118 H 09/21/20 09/21/20 12:16 11:43 POC Glucose 81 55 L* Hospitalist ROS - Medication Medications: Active Medications Generic Name Dose Route Start Last Admin Trade Name Freq PRN Reason Stop Dose Admin Dextrose/Water 25 gm 09/21/20 12:00 09/21/20 11:58 Dextrose 50% Abboject 50 Ml Syringe IVP 25 gm PRN PRN Administration HYPOGLYCEMIA PROTOCOL Furosemide 40 mg 09/21/20 06:00 09/22/20 05:58 Furosemide 40 Mg/4 Ml Vial SLOW IVP 40 mg 0600,1400 TAHMINA Administration Heparin Sodium (Porcine) 5,000 units 09/21/20 21:00 09/22/20 08:35 Heparin 5,000 Units/Ml Vial SC 5,000 units BID TAHMINA Administration Azithromycin 500 mg/ Sodium 250 mls @ 250 mls/hr 09/21/20 04:00 09/22/20 04:09 Chloride IVPB 250 mls 0400 TAHMINA Administration Cefepime HCl 2 gm/ Sodium 100 mls @ 200 mls/hr 09/21/20 09:00 09/22/20 08:33 Chloride IVPB 100 mls Q12HR TAHMINA Administration Amiodarone HCl 450 mg/ 259 mls @ 0 mls/hr 09/22/20 05:30 09/22/20 06:33 Miscellaneous Medication 1 IVPB 259 mls each/ Dextrose/Water INF TAHMINA Administration Protocol As Directed Lorazepam 2 mg 09/21/20 03:30 09/21/20 21:22 Lorazepam 2 Mg/Ml Vial SLOW IVP 10/21/20 03:30 2 mg Q1H PRN Administration Breakthrough agitation Methylprednisolone Sodium Succinate 40 mg 09/21/20 09:00 09/22/20 08:35 Methylprednisolone Sod Succ 40 Mg Vial IVP 40 mg DAILY TAHMINA Administration Metoprolol Tartrate 2.5 mg 09/21/20 15:28 09/21/20 16:02 Metoprolol Tartrate 5 Mg/5 Ml Vial IVP 2.5 mg Q4H PRN Administration HR >120 Pantoprazole Sodium 40 mg 09/22/20 09:00 09/22/20 08:36 Pantoprazole 40 Mg Vial IVP 40 mg DAILY TAHMINA Administration Hospitalist Exam Vitals: Vital Signs (12 hours) Temp Pulse BP Pulse Ox 09/22/20 08:00 99.1 F 09/22/20 07:15 119 H 96/64 93 L 09/22/20 03:44 126 H 09/22/20 02:50 93 L 09/22/20 02:15 94 L 09/21/20 23:30 122 H Weight Admit Weight 383 lb Weight 381 lb 6.395 oz Most Recent Monitor Data Heart Rate from ECG 127 NIBP 99/54 NIBP BP-Mean 69 Respiration from ECG 21 SpO2 95 General Appearance: NAD, awake alert Eye: PERRL, anicteric sclera Heart: RRR, no murmur, no gallops, no rubs, normal peripheral pulses Respiratory: no wheezes, no ronchi, rales (at the bases) Gastrointestinal: soft, non-tender, non-distended, normal bowel sounds, no palpable masses, no hepatomegaly Extremities: no cyanosis (+ purplish lesion on the plantar surface of left foot, callous on the right, pulses are palpable), 1+ LE edema Hosp A/P (1) Acute respiratory failure with hypoxemia Code(s): Margaret96.01 - ACUTE RESPIRATORY FAILURE WITH HYPOXIA Status: Acute (2) Acute kidney injury Code(s): N17.9 - ACUTE KIDNEY FAILURE, UNSPECIFIED Status: Acute (3) Hyperkalemia Code(s): E87.5 - HYPERKALEMIA Status: Acute (4) Atrial fibrillation Code(s): I48.91 - UNSPECIFIED ATRIAL FIBRILLATION Status: Acute (5) Morbid obesity with BMI of 70 and over, adult Code(s): E66.01 - MORBID (SEVERE) OBESITY DUE TO EXCESS CALORIES; Z68.45 - BODY MASS INDEX [BMI] 70 OR GREATER, ADULT Status: Acute (6) Acute on chronic clinical systolic heart failure Code(s): I50.23 - ACUTE ON CHRONIC SYSTOLIC (CONGESTIVE) HEART FAILURE Status: Acute (7) COPD (chronic obstructive pulmonary disease) Status: Chronic - Plan * Acute on chronic systolic heart failure exacerbation- continue IV Lasix * Echo results noted. She has mild systolic heart failure, and aortic stenosis- Cardiology input appreciated * Hyperkalemia- improved- but will continue to monitor given acute kidney injury * AFIB- her heart rate has been elevated- She has been stated on an Amiodarone drip * Acute Kidney injury-renal function is about the same- urine output has been marginal * COPD/possible pneumonia- continue Azithromycin, and Cefepime and Solumedrol * Blood glucose has been low- will monitor * Respiratory failure on the ventilator- continue as per PCCM * DVT Prophylaxis- on Heparin SQ, however she was noted to have some bleeding in the ET tube- will monitor * Prognosis is guarded
[2020-09-22] MEDS ORDERED: Fentanyl CADD 100 ML ONE ×2 (11:04→23:24)
[2020-09-22] MEDS: Lorazepam 2 MG/ML VIAL SLOW IVP PRN ×2 (11:21→17:03)
[2020-09-22] MEDS: Metoprolol Tartrate 5 MG/5 ML VIAL IVP PRN ×2 (11:27→17:14)
--- NOTE | 2020-09-22 15:50 | PRG ---
DATE OF SERVICE: 09/22/2020 SUBJECTIVE: The patient was seen and examined in ICU, remains intubated. OBJECTIVE: GENERAL: This is a morbidly obese female, intubated. VITAL SIGNS: Temperature 100.1, pulse 127, respiratory rate 16, blood pressure 133/86. HEENT: Intubated. CV: S1 and S2 heard. RESPIRATORY: Coarse. GI: Abdomen is obese. MUSCULOSKELETAL: 1+ edema. DERMATOLOGIC: Chronic skin changes in the legs. NEUROLOGIC: Intubated. LABORATORY DATA: Potassium 5.0, BUN is 56, creatinine is 2.7. ASSESSMENT AND PLAN: 1. Acute kidney injury on chronic kidney disease, stage 4. Renal function seems to be stable. Continue on diuretics. 2. Cardiorenal syndrome. 3. Hyperkalemia, better. 4. Edema. 5. Morbid obesity. 6. Anemia. 7. Acute hypoxic respiratory failure, intubated. Continue diuretic therapy with close monitor of renal function. The patient seems to have chronic kidney disease, stage 4. Avoid nephrotoxins. If renal function not better significant urine output, might need dialysis also. We will continue to monitor closely. Job ID: [id number]
[2020-09-23] MEDS: Azithromycin 500 MG in Sodium Chloride 0.9% 250 ML 250 ML IVPB SCH (04:09)
[2020-09-23 05:06] LABS: Anion Gap 19 mmol/L (10-20); BUN (Urea Nitrogen) 65 mg/dL (9.8-20.1); Calc. Creatinine Clearance 35 mL/min (70-130); Calcium 8.6 mg/dL (7.8-10.44); Carbon Dioxide 24 mmol/L (23-31); Chloride 107 mmol/L (98-107); Glucose 105 mg/dL (83-110); Potassium 6.2 mmol/L (3.5-5.1); Sodium 144 mmol/L (136-145)
[2020-09-23] MEDS: Furosemide 40 MG/4 ML VIAL SLOW IVP SCH (05:52)
[2020-09-23] MEDS: Pantoprazole 40 MG VIAL IVP SCH (08:30)
[2020-09-23] MEDS: Cefepime 2 GM in Sodium Chloride 0.9% 100 ML IVPB SCH (08:30)
[2020-09-23] MEDS: methylPREDNISolone Sod Succ 40 MG VIAL IVP SCH (08:30)
--- NOTE | 2020-09-23 08:43 | RAD ---
PORTABLE CHEST: DATE: 09/23/2020. PROVIDED CLINICAL HISTORY: Respiratory insufficiency. FINDINGS: Comparison 09/20/2020. Examination is limited by motion and patient body habitus. Examination is rot ated. Cardiac silhouette again appears enlarged. Extensive right hemithoracic opacities redemonstra maximo. There is obscuration of the inferior left hemithorax possibly on the basis of a combination of cardiomegaly, as well as pleural and/or parenchymal opacity. Endotracheal tube is again seen in lamine lar position. No evidence for pneumothorax. IMPRESSION: Limited study without gross interval change apparent. POS: IBAN
--- NOTE | 2020-09-23 11:06 | PDOC.HOSPP ---
- Subjective Encounter Date: 09/23/20 Encounter Time: 11:04 Subjective: Ms. Rodriguez was seen today in follow-up of respiratory failure due to CHF exacerbation, and Aortic stenosis. She remains intubated. - Objective Vital Signs & Weight: Vital Signs (12 hours) Temp Pulse BP Pulse Ox 09/23/20 10:47 127 H 106/83 09/23/20 09:00 102 F H 09/23/20 07:07 125 H 131/64 93 L 09/23/20 04:52 126 H 09/23/20 01:25 130 H Weight Admit Weight 383 lb Weight 381 lb 6.395 oz Most Recent Monitor Data Heart Rate from ECG 132 NIBP 106/83 NIBP BP-Mean 90 Respiration from ECG 14 SpO2 93 I&O: 09/22/20 09/23/20 09/24/20 06:59 06:59 06:59 Intake Total 649.6 598 100 Output Total 670 130 35 Balance -20.4 468 65 Result Diagrams: 09/22/20 04:15 09/23/20 04:00 Additional Labs: Accuchecks 09/22/20 09/22/20 17:21 11:44 POC Glucose 149 H 148 H Hospitalist ROS - Medication Medications: Active Medications Generic Name Dose Route Start Last Admin Trade Name Freq PRN Reason Stop Dose Admin Dextrose/Water 25 gm 09/21/20 12:00 09/21/20 11:58 Dextrose 50% Abboject 50 Ml Syringe IVP 25 gm PRN PRN Administration HYPOGLYCEMIA PROTOCOL Metoprolol Tartrate 2.5 mg 09/21/20 15:28 09/22/20 17:14 Metoprolol Tartrate 5 Mg/5 Ml Vial IVP 2.5 mg Q4H PRN Administration HR >120 Hospitalist Exam Vitals: Vital Signs (12 hours) Temp Pulse BP Pulse Ox 09/23/20 10:47 127 H 106/83 09/23/20 09:00 102 F H 09/23/20 07:07 125 H 131/64 93 L 09/23/20 04:52 126 H 09/23/20 01:25 130 H Weight Admit Weight 383 lb Weight 381 lb 6.395 oz Most Recent Monitor Data Heart Rate from ECG 132 NIBP 106/83 NIBP BP-Mean 90 Respiration from ECG 14 SpO2 93 General Appearance: NAD Eye: PERRL, anicteric sclera Heart: RRR, no gallops, no rubs, normal peripheral pulses, murmur present, II/IV Respiratory: rales (at the bases) Gastrointestinal: soft, non-tender, non-distended, normal bowel sounds, no palpable masses, no hepatomegaly Extremities: no cyanosis, 1+ LE edema Hosp A/P (1) Acute respiratory failure with hypoxemia Code(s): J96.01 - ACUTE RESPIRATORY FAILURE WITH HYPOXIA Status: Acute (2) Acute kidney injury Code(s): N17.9 - ACUTE KIDNEY FAILURE, UNSPECIFIED Status: Acute (3) Hyperkalemia Code(s): E87.5 - HYPERKALEMIA Status: Acute (4) Atrial fibrillation Code(s): I48.91 - UNSPECIFIED ATRIAL FIBRILLATION Status: Acute (5) Morbid obesity with BMI of 70 and over, adult Code(s): E66.01 - MORBID (SEVERE) OBESITY DUE TO EXCESS CALORIES; Z68.45 - BODY MASS INDEX [BMI] 70 OR GREATER, ADULT Status: Acute (6) Acute on chronic clinical systolic heart failure Code(s): I50.23 - ACUTE ON CHRONIC SYSTOLIC (CONGESTIVE) HEART FAILURE Status: Acute (7) COPD (chronic obstructive pulmonary disease) Status: Chronic - Plan * Acute on chronic systolic heart failure exacerbation- * AFIB- her heart rate has been elevated despite the addition of the Amiodarone * Acute Kidney injury-her creatinine has almosted doubled, and urine output remains marginal * COPD/possible pneumonia- continue Azithromycin, and Cefepime and Solumedrol * Blood glucose is stable * Respiratory failure on the ventilator-She is not weanable * Discussed with Dr. Mae * The patient's son has decided to withdraw ventilatory support.
--- NOTE | 2020-09-23 12:52 | PRG ---
DATE OF SERVICE: 09/23/2020 OBJECTIVE: VITAL SIGNS: Ms. Rodriguez's heart rate is 127. She is in atrial fib this morning. Blood pressure 106/83, respiratory rate was per mechanical ventilation in the teens. LUNGS: Distant. HEART: Regular rhythm. ABDOMEN: Massive. EXTREMITIES: Without asymmetry. She does have significant stasis changes. LABORATORY STUDIES: Sodium 144, potassium 6.2, chloride 107, bicarb 24, BUN 65, creatinine 4.0. IMPRESSION: Multiorgan dysfunction associated with deconditioning, life-threatening obesity, rapid atrial fibrillation, and progressive renal insufficiency. I had a long discussion with her son. The other son refuses to come to the hospital for talk about any of this, which has made his son I was talking to very upset. He did state that he is willing to make all the decisions and his brother was pushing this off on him. He wants his mother to be extubated and wants us to proceed forward with comfort care. I have reassured him that he is making the right decision. No orders have been entered. Job ID: [id number]
[2020-09-23 13:02] VITALS: TEMP 100.8
[2020-09-23] MEDS: Morphine 10 MG/ML VIAL SLOW IVP PRN ×2 (14:01→16:40)
[2020-09-23] MEDS: Metoprolol Tartrate 5 MG/5 ML VIAL ONE (14:05)
[2020-09-23 14:33] VITALS: BP 111/77
--- NOTE | 2020-09-23 19:19 | DIS ---
DATE OF ADMISSION: 09/20/2020 DATE OF DISCHARGE: 09/23/2020 DATE OF : 09/23/2020. DIAGNOSES: 1. Yhyth-uv-ptagdxm combined heart failure. 2. Acute respiratory failure secondary to kucif-ai-icwtxmq combined heart failure. 3. Moderate to severe aortic stenosis. 4. Morbid obesity. 5. Chronic obstructive pulmonary disease. 6. Atrial fibrillation. 7. Diabetes mellitus type 2. 8. Hyperlipidemia. IMAGING DONE DURING THE HOSPITAL STAY: The patient had an echocardiogram demonstrating an ejection fraction of 40% to 50%. There was thickening of the aortic leaflets, moderate to severe tricuspid regurgitation. The AV cusp separation was 0.62 cm. CODE STATUS: DNAR. ALLERGIES: TO CODEINE AND MORPHINE. HOSPITAL COURSE: Ms. Rodriguez is a 70-year-old female who was admitted to the hospital with respiratory distress. She was sent over from the [facility]. She ultimately required intubation. She was found to be in [id number] combined heart failure likely a combination of atrial fibrillation with rapid ventricular response as well as aortic stenosis. She was seen by Pulmonology and Cardiology during her hospital stay. Her atrial fibrillation was very difficult to control despite being on amiodarone drip, trial at [facility]. Due to her comorbid conditions, it was felt that she would be extremely difficult to wean from the ventilator. These factors were discussed with the patient's family and they made the decision to withdraw care and she peacefully on 09/23/2020 at 6:28 p.m. Job ID: [id number]
--- NOTE | 2020-09-24 06:00 | PRG ---
DATE OF SERVICE: 09/23/2020 SUBJECTIVE: The patient is seen and examined in ICU, remains intubated, making minimal amount of urine. Bedside nurse updated me that family is deciding to have comfort measures and withdrawal of the care once the [id number]-th-jdi arrives to the hospital. No family members available at the bedside now. OBJECTIVE: GENERAL: This is a morbidly obese female, who is intubated. VITAL SIGNS: Temperature 100.8, pulse 128, respiratory rate 16, and blood pressure 123/82. HEENT: Intubated. CV: S1 and S2 heard. RESPIRATORY: Clear anteriorly. GASTROINTESTINAL: Abdomen is obese. MUSCULOSKELETAL: 1+ edema. DERMATOLOGIC: No skin changes. NEUROLOGICAL: Intubated. LABORATORY DATA: Potassium 6.2, BUN is 65, and creatinine is 4.01. ASSESSMENT AND PLAN: 1. Acute kidney injury on chronic kidney disease, stage 4 with labs worsening and minimal urine output. I did have a discussion with the son this morning and they have the option of dialysis versus not. Family understands her poor prognosis and her cardiac status. They had a discussion with Cardiology and Pulmonology yesterday. Family does not wish dialysis as an option at this point and they do not want to pursue any aggressive measures for renal replacement. I encouraged them to consider comfort measures due to the worsening kidney failure. I heard from the bedside nurse they are considering comfort measures and compassionate extubation later today. 2. Cardiorenal syndrome. 3. Hyperkalemia. 4. Edema. 5. Morbid obesity. 6. Anemia. 7. Acute hypoxic respiratory failure. Family considering comfort measures. I will sign off. Please call with any questions. Job ID: [id number]
--- NOTE | 2020-09-25 17:34 | EKG ---
Test Reason : COPD Blood Pressure : / mmHG Vent. Rate : 119 BPM Atrial Rate : 115 BPM P-R Int : 000 ms QRS Dur : 102 ms QT Int : 288 ms P-R-T Axes : 000 063 -10 degrees QTc Int : 405 ms Atrial fibrillation with rapid ventricular response Low voltage QRS Cannot rule out Anterior infarct , age undetermined Abnormal ECG Confirmed by JENNIFER PANDEY, LULU ([id number]), editor publications SLADE BEDOLLA ([id number]) on 09/25/2020 5:33:34 PM Referred By: Confirmed By:LULU RODRIGUEZ MD
== END 2020-09-23 18:28 | disposition expired | DRG 208 ==
LOC: ERS 19:43 → CCU 23:37
PROVIDERS: ADMIT Student in an Organized Health Care Education/Training Program; ATTEND Internal Medicine
PROC: 5A1945Z Respiratory Ventilation, 24-96 Consecutive Hours (ICD-10-PCS; principal; 2020-09-20)
PROC: 0D9770Z Drainage of Stomach, Pylorus with Drainage Device, Via Natural or Artificial Opening (ICD-10-PCS; 2020-09-20)
PROC: 0BH17EZ Insertion of Endotracheal Airway into Trachea, Via Natural or Artificial Opening (ICD-10-PCS; 2020-09-20)
DX: J44.1 Chronic obstructive pulmonary disease with (acute) exacerbation (principal); J96.21 Acute and chronic respiratory failure with hypoxia; I50.43 Acute on chronic combined systolic (congestive) and diastolic (congestive) heart failure; J18.9 Pneumonia, unspecified organism; Z68.45 Body mass index [BMI] 70 or greater, adult; I13.0 Hypertensive heart and chronic kidney disease with heart failure and stage 1 through stage 4 chronic kidney disease, or unspecified chronic kidney disease; G93.1 Anoxic brain damage, not elsewhere classified; N17.9 Acute kidney failure, unspecified; I42.9 Cardiomyopathy, unspecified; I48.21 Permanent atrial fibrillation; N18.4 Chronic kidney disease, stage 4 (severe); Z66 Do not resuscitate; Z20.822 Contact with and (suspected) exposure to COVID-19; E66.01 Morbid (severe) obesity due to excess calories; E78.00 Pure hypercholesterolemia, unspecified; F32.9 Major depressive disorder, single episode, unspecified; E78.5 Hyperlipidemia, unspecified; I35.0 Nonrheumatic aortic (valve) stenosis; E87.5 Hyperkalemia; L89.152 Pressure ulcer of sacral region, stage 2; D63.1 Anemia in chronic kidney disease; E11.22 Type 2 diabetes mellitus with diabetic chronic kidney disease; G47.33 Obstructive sleep apnea (adult) (pediatric); J44.0 Chronic obstructive pulmonary disease with (acute) lower respiratory infection; Z88.5 Allergy status to narcotic agent; Z79.899 Other long term (current) drug therapy; Z79.01 Long term (current) use of anticoagulants; Z79.4 Long term (current) use of insulin; Z78.1 Physical restraint status
CPT/HCPCS: 0240U; 31500; 36415; 36416; 36600; 43752; 51702; 71045; 80048; 80053; 81001; 82550; 82805; 83605; 83690; 83880; 84484; 85025; 93005; 93306; 94002; 94003; 94660; 96365; 96366; 96367; 96375; 96376; C9113; J0282; J0456; J0692; J0696; J1644; J1815; J1940; J2001; J2060; J2270; J2920; J3010; J3475; J3490; J7050; J7070